=== PATIENT | male | born 1955 | race Caucasian/White ===

== ENCOUNTER 2016-10-29 17:29 | Observation (INO) | payer OTHER ==
[~2016-10-29] VITALS: Ht 180.3 cm; Wt 106.6 kg
--- NOTE | 2016-10-29 17:43 | EKG ---
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
[2016-10-29 17:52] LABS: BASO % 1 % (0-3); EOS # 0.3 x10^3/uL (0.0-0.7); EOS % 5 % (0-3); HEMATOCRIT 39.6 % (39.0-53.0); HEMOGLOBIN 13.6 g/dL (13.0-17.5); LYMPH # 2.3 x10^3/uL (1.0-4.8); LYMPH % 43 % (24-48); MEAN CORPUSCULAR HEMOGLOBIN 33 pg (25-35); MEAN CORPUSCULAR HGB CONC 34 g/dL (31-37); MEAN CORPUSCULAR VOLUME 97 fL (79-100); MONO # 0.8 x10^3/uL (0.0-1.1); MONO % 14 % (0-9); NEUT % 37 % (31-73); PLATELET COUNT 136 x10^3/uL (140-400); RED CELL DISTRIBUTION WIDTH 13.2 % (11.5-14.5); WHITE BLOOD COUNT 5.4 x10^3/uL (4.0-11.0)
[2016-10-29 18:08] LABS: ALBUMIN 3.9 g/dL (3.4-5.0); ALBUMIN/GLOBULIN RATIO 0.9 (1.0-1.7); CALCIUM 8.5 mg/dL (8.5-10.1); GFR 75.7; POTASSIUM 3.4 mmol/L (3.5-5.1); TOTAL BILIRUBIN 1.3 mg/dL (0.2-1.0); TOTAL PROTEIN 8.2 g/dL (6.4-8.2)
--- NOTE | 2016-10-29 18:10 | PHYS DOC ---
Adult General Chief Complaint Chief Complaint: CHEST PAIN HPI HPI Patient is a 60 year old male who presents with chest pain and palpitations. The patient states just prior to arrival he was shopping at [employer] when he had sudden onset of substernal chest pressure radiating to his throat. Associated with shortness of breath and nausea, denies diaphoresis. Reports sensation of palpitations and racing heartbeat. Denies fevers or chills, cough, lower extremity pain or swelling. He reports previous history of similar symptoms when he was diagnosed with A. fib. He had ablation in the past and has had no further recurrence of atrial fibrillation. Also has CAD status post cardiac stent 1. Former smoker. 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 Review of Systems Review of Systems Constitutional: Denies fever or chills Eyes: Denies change in visual acuity HENT: Denies nasal congestion or sore throat Respiratory: Denies cough or shortness of breath Cardiovascular: For chest pain and palpitations, denies edema GI: Denies abdominal pain, nausea, vomiting, bloody stools or diarrhea Musculoskeletal: Denies back pain or joint pain Integument: Denies rash or skin lesions Neurologic: Denies headache, focal weakness or sensory changes Current Medications Current Medications Current Medications Medications (Trade) Dose Ordered Sig/Dorinda Start Time Stop Time Status Last Admin Dose Admin Aspirin (Children'S Aspirin) 324 mg 1X ONCE 10/29/16 17:45 10/29/16 17:46 UNV Physical Exam Physical Exam Constitutional: Obese, no acute distress, non-toxic appearance. HENT: Normocephalic, atraumatic, bilateral external ears normal, oropharynx moist, nose normal. Eyes: PERRLA, EOMI, conjunctiva normal, no discharge. Neck: supple, no stridor. Cardiovascular: RRR, no murmurs, no edema. Lungs & Thorax: LCTAB, no wheezing, no respiratory distress. No tenderness with palpation of her anterior chest wall. Abdomen: soft, nontender, nondistended. Skin: Warm, dry, no erythema, no rash. Back: No tenderness. Extremities: No tenderness, no edema. Calf tenderness or swelling Neurologic: Alert and oriented X 3, no focal deficits noted. Psychologic: Affect normal, judgement normal, mood normal. Current Patient Data Lab Results Laboratory Tests Test 10/29/16 17:35 White Blood Count 5.4 x10^3/uL (4.0-11.0) Red Blood Count 4.10 x10^6/uL (4.30-5.70) L Hemoglobin 13.6 g/dL (13.0-17.5) Hematocrit 39.6 % (39.0-53.0) Mean Corpuscular Volume 97 fL (79-100) Mean Corpuscular Hemoglobin 33 pg (25-35) Mean Corpuscular Hemoglobin Concent 34 g/dL (31-37) Red Cell Distribution Width 13.2 % (11.5-14.5) Platelet Count 136 x10^3/uL (140-400) L Neutrophils (%) (Auto) 37 % (31-73) Lymphocytes (%) (Auto) 43 % (24-48) Monocytes (%) (Auto) 14 % (0-9) H Eosinophils (%) (Auto) 5 % (0-3) H Basophils (%) (Auto) 1 % (0-3) Neutrophils # (Auto) 2.0 x10^3uL (1.8-7.7) Lymphocytes # (Auto) 2.3 x10^3/uL (1.0-4.8) Monocytes # (Auto) 0.8 x10^3/uL (0.0-1.1) Eosinophils # (Auto) 0.3 x10^3/uL (0.0-0.7) Basophils # (Auto) 0.0 x10^3/uL (0.0-0.2) EKG EKG Interpreted by me: Normal sinus rhythm rate 97, no acute ST or T wave changes, normal intervals, no ectopy. [] Radiology/Procedures Radiology/Procedures Chest x-ray: Interpreted by me: Cardiomegaly, no infiltrate, no pneumothorax, no acute process. [] Course & Med Decision Making Course & Med Decision Making Pertinent Labs and Imaging studies reviewed. (See chart for details) Patient presents with chest pain. Given aspirin upon arrival. He was pain-free at time of my evaluation. Obtained labs, EKG, chest x-ray. Results pending at the end of my shift. Will transfer care to Dr. Beaulieu follow-up results and disposition accordingly. Anticipate admission, either here for cardiac rule out or to [facility] for requiring emergent cardiology intervention. Patient in stable condition end of my shift. Pt signed out to me at 1800 shift change. Pt seen and examined, chart reviewed. d-dimer elevated 0.91, CTA ordered. K+ 3.4, AST 136, ALT 120, t. bili 1.3, lipase 456, etoh +/ <10. Pt denies n/v/abd pain after eating, neg murray. 60/M h/o afib/CAD to ED with CP, nondiagnostic findings to this point. Pt has been resting comfortably, no new/progressive sx. Pt [employer] Dr Marcum at [facility] (prefers to be admitted here if needed), pt PCP Dr Mendy Ivey. Pt needs OBS admission to follow CE and at this point requests admission at this facility. 2023: Pt discussed with Dr Barakat who accepts Obs admission to follow CE and cardio consult in am. IMPRESSIONS: Chest Pain r/o UT hypokalemia Elevated lipase/LFTs h/o afib, CAD Dragon Disclaimer Dragon Disclaimer This chart was dictated in whole or in part using Voice Recognition software in a busy, high-work load, and often noisy Emergency Department environment. It may contain unintended and wholly unrecognized errors or omissions. Departure Departure: Referrals: MENDY IVEY MD (PCP) RAVI BENAVIDES MD Oct 29, 2016 18:10 LEXUS BEAULIEU DO Oct 29, 2016 20:37
[2016-10-29] MEDS ORDERED: ASPIRIN 81 MG TAB.CHEW PO ONE (18:45)
[2016-10-29 19:23] LABS: BARBITURATES NEG (NEG); BENZODIAZEPINES NEG (NEG); CANNABINOIDS NEG (NEG); COCAINE NEG (NEG); METHADONE NEG (NEG); OPIATES NEG (NEG); PHENCYCLIDINE NEG (NEG)
[2016-10-29 19:24] LABS: AMPHETAMINE/METHAMPHETAMINE NEG (NEG)
[2016-10-29] MEDS ORDERED: IOHEXOL 300 MG/ML 75 ML VIAL. IV ONE (19:30)
[2016-10-29] MEDS ORDERED: CONTRAST GIVEN MC PRN (19:30)
--- NOTE | 2016-10-29 19:58 | RAD ---
Indication: Chest pain and shortness of air with elevated d-dimer. Axial imaging through the chest was performed after the administration of intravenous contrast and utilizing the CT angiography protocol. Multiplanar, 3-D and mip reformations were also performed. One or more of the following individualized dose reduction techniques were utilized for this examination: 1. Automated exposure control 2. Adjustment of the mA and/or kV according to patient size 3. Use of iterative reconstruction technique Evaluation of the pulmonary arterial system is without evidence of thromboembolism. No filling defects are detected. The thoracic aorta is normal caliber. No dissection is seen. No pericardial or pleural fluid is detected. Central airways are patent. The lungs are clear. The upper abdomen demonstrate probable fatty infiltration of the liver. IMPRESSION: 1. No evidence of pulmonary embolism or thoracic aortic dissection. 2. Fatty infiltration of the liver. Electronically signed by: Rm Benson MD (10/29/2016 7:54 PM)
[2016-10-29] MEDS ORDERED: ACETAMINOPHEN 325 MG TABLET PO PRN (20:30)
[2016-10-29] MEDS ORDERED: ONDANSETRON PF 4 MG/2 ML VIAL. IV PRN (20:30)
[2016-10-29] MEDS ORDERED: NITROGLYCERIN SUBLINGUAL 0.4 MG BOTTLE OF 25. SL PRN (20:30)
[2016-10-29] MEDS ORDERED: ALBUTEROL SULFATE 8GM INHALER. INH PRN (21:30)
[2016-10-29] MEDS ORDERED: BUDE10.2 IH (21:31)
[2016-10-29] MEDS ORDERED: ASPI325T8 PO (21:31)
[2016-10-29] MEDS ORDERED: OMEG1CAP50 PO (21:31)
[2016-10-29] MEDS ORDERED: DILT360C PO (21:31)
[2016-10-29] MEDS ORDERED: RABE20TA26 PO (21:31)
[2016-10-29] MEDS ORDERED: ALBU8.5H8 INH (21:31)
[2016-10-29 21:40] VITALS: BP 179/64
[2016-10-29] MEDS ORDERED: ALBUTEROL SULFATE 2.5 MG/3 ML NEBU. NEB PRN (21:45)
[2016-10-30 05:24] VITALS: BP 143/74
--- NOTE | 2016-10-30 07:05 | ACF ---
Admission Criteria Forms TELEMETRY CARE Telemetry Admission Guidelines (Place 'X' for any and all applicable criteria): Admission to telemetry [A] may be indicated for ANY ONE of the following(1)(2)(3 )(4)(5): [X]I. Cardiac disease, including ANY ONE of the following (9)(10)(11)(12)(13 ): [ ]a) Postacute UT [ ]b) Low-risk patients with ST-segment elevation UT who have undergone successful percutaneous coronary intervention [ ]c) Unstable angina [X]d) Suspected UT (until it is ruled out) [ ]e) Post cardiac surgery (first 48 to 72 hours unless complications occur) [ ]f) Acute arrhythmias (including significant tachycardia or bradycardia) [B] [ ]g) Firing of an implantable cardioverter defibrillator [C] [ ]h) Suspected pacemaker or implantable cardioverter defibrillator malfunction (10) [ ]i) New administration or adjustment of an antiarrhythmic drug [D ] [ ]j) Child admitted for acute congestive heart failure [ ]j) Long QT syndrome [ ]k) Advanced heart block (eg, second-degree Mobitz type II, third- degree heart block) [ ]l) Acute myocarditis or pericarditis [ ]m) Short-term (ambulatory or inpatient) monitoring after a cardiac procedure as indicated by ANY ONE of the following [E]: [ ]i) Electrophysiologic studies [ ]ii) Percutaneous coronary intervention with stent placement [ ]iii) Pacemaker placement with cardiac conduction defect [ ]iv) Implantable cardiac defibrillator placement [ ]II. Drug overdose or poisoning with substance that causes arrhythmias or QT prolongation (eg, phenothiazines, sympathomimetic agents, cyclic antidepressants, digitalis, antiarrhythmic drugs)(15) [ ]III. Short-term (ambulatory or inpatient) monitoring after therapeutic or diagnostic procedure requiring conscious sedation or anesthesia (eg, endoscopy, elective cardioversion) [ ]IV. Acute cerebrovascular even[F](18) [ ]V. Massive blood transfusion (eg, at least 10 units of packed red blood cells in 24 hours) [ ]. Variceal bleeding after endoscopy, sclerotherapy, or IV vasopressin [ ]VII. Uncorrected electrolyte abnormalities associated with an increased risk of dangerous arrhythmia [G]; examples include [ ]a) Hyperkalemia with attributable ECG changes [ ]b) Potassium greater than 6.5 mmol/L (mEq/L) in a patient without history of chronic renal disease [ ]c) Prolonged QT attributed to hypokalemia, hypomagnesemia, or hypocalcemia [ ]VIII.Unexplained syncope or other neurologic event suspected of being due to arrhythmia due to a finding that increases risk; examples include(19)(20)(21): [ ]a) High-risk ECG findings (eg, bifascicular block, bradycardia, abnormal QT interval, ventricular pre- excitation) [ ]b) History of previous syncope due to arrhythmia [ ]c) Abnormal ventricular function (eg, reduced ejection fraction ) [ ]d) Exertional or supine syncope [ ]e) Concerning syncope characteristics (eg, sudden loss of consciousness without prodrome) [ ]f) Family history of sudden [ ]g) Use of arrhythmogenic medication [ ]h) Suspected cardiac ischemia [ ]i) Known channelopathy (eg, long QT syndrome, Brugada syndrome, or catecholaminergic paroxysmal ventricular tachycardia) [ ]j) Known structural heart disease (eg, hypertrophic cardiomyopathy , severe valvular disease) [ ]k) Palpitations preceding syncope The original [email or web address] content created by [email or web address] has been revised. The portions of the content which have been revised are identified through the use of italic text or in bold, and [email or web address] has neither reviewed nor approved the modified material. All other unmodified content is copyright [email or web address]. Please see references footnoted in the original [email or web address] edition 2016 Admission Criteria Met?: Yes ELANA HOLLAND Oct 30, 2016 07:05
[2016-10-30] MEDS ORDERED: BUDESONIDE 0.5 MG/2 ML NEBU NEB SCH (08:00)
[2016-10-30 08:08] LABS: BASO % 1 % (0-3); EOS # 0.2 x10^3/uL (0.0-0.7); EOS % 3 % (0-3); HEMATOCRIT 36.7 % (39.0-53.0); HEMOGLOBIN 12.6 g/dL (13.0-17.5); LYMPH # 1.2 x10^3/uL (1.0-4.8); LYMPH % 24 % (24-48); MEAN CORPUSCULAR HEMOGLOBIN 33 pg (25-35); MEAN CORPUSCULAR HGB CONC 34 g/dL (31-37); MEAN CORPUSCULAR VOLUME 97 fL (79-100); MONO # 0.7 x10^3/uL (0.0-1.1); MONO % 14 % (0-9); NEUT # 2.9 x10^3uL (1.8-7.7); NEUT % 58 % (31-73); PLATELET COUNT 105 x10^3/uL (140-400); RED BLOOD COUNT 3.79 x10^6/uL (4.30-5.70); RED CELL DISTRIBUTION WIDTH 13.2 % (11.5-14.5); WHITE BLOOD COUNT 4.9 x10^3/uL (4.0-11.0)
[2016-10-30 08:24] LABS: ALBUMIN 3.5 g/dL (3.4-5.0); CALCIUM 8.4 mg/dL (8.5-10.1); CREATININE 0.9 mg/dL (0.7-1.3); GFR 85.5; POTASSIUM 3.3 mmol/L (3.5-5.1); TOTAL BILIRUBIN 1.6 mg/dL (0.2-1.0)
[2016-10-30] MEDS ORDERED: NON FORMULARY ITEM (Budesonide/Formoterol Fumarate (Symbicort 160-4.5 Mcg Inhaler) 2 PUFF) IH SCH (09:00)
[2016-10-30] MEDS ORDERED: ASPIRIN 325 MG TABLET PO SCH (09:00)
[2016-10-30] MEDS ORDERED: OMEGA-3 FATTY ACIDS/FISH OIL 1,000 MG CAPSULE. PO SCH (09:00)
--- NOTE | 2016-10-30 09:24 | RAD ---
Indication chest pain. A single view of the chest was obtained. No prior imaging of the chest is available. The heart and pulmonary vessels appear normal. The lungs are clear. No acute finding is apparent. IMPRESSION: No acute finding apparent in the chest
[2016-10-30] MEDS: ALBUTEROL SULFATE 2.5 MG/3 ML NEBU. NEB SCH ×2 (10:00→12:00)
[2016-10-30 10:21] VITALS: BP 138/82
--- NOTE | 2016-10-30 14:00 | PDOC1 ---
History of Present Illness Reason for Visit: chest pain and palpitation History of Present Illness The patient was shopping at [employer] when he started to complain of retrosternal chest pain radiating to his neck associated with nausea but no vomiting He also c/o SOB but denied diaphoresis The whole episode lasted about 30 minutes It was similar to an other episode before after which he underwent angioplasty and stent deployment Chief Complaint: CHEST PAIN Allergies: Coded Allergies: cephalexin (Verified Allergy, Intermediate, 10/30/16) Past Medical History Cardiac: AFIB, CAD Pulmonary: Other (bronchial asthma) 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 He used to smoke 1 ppd for almost 37 years ) Alcohol: heavy (drinks vodka or whisky daily) Drugs: None Lives: with Family Domestic Violence: Neg Health Maintenance: Colonoscopy Review of Systems Review Of Systems Fourteen system , review of systems has been reviewed. See HPI for pertinent positives and negative responses, other estes all other systems are negative, non pertinent or non contributory Constitutional: Sweats Cardiovascular: yes: Chest Pain, Palpitations Gastrointestinal: YES: Nausea Allergies: Coded Allergies: cephalexin (Verified Allergy, Intermediate, 10/30/16) Medications Current Medications Aspirin (Children'S Aspirin) 324 mg 1X ONCE PO ; Start 10/29/16 at 18:45; Stop 10/29/16 at 18:46; Status DC Iohexol (Omnipaque 300 Mg/ml) 75 ml 1X ONCE IV Last administered on 10/29/16t 19:36; Start 10/29/16 at 19:30; Stop 10/29/16 at 19:31; Status DC Info (Do NOT chart on this entry -- for MONITORING) 1 each PRN DAILY PRN MC SEE COMMENTS; Start 10/29/16 at 19:30; Stop 10/31/16 at 19:29 Ondansetron HCl (Zofran) 4 mg PRN Q4HRS PRN IV NAUSEA/VOMITING; Start 10/29/16 at 20:30; Stop 10/30/16 at 20:29 Acetaminophen (Tylenol) 650 mg PRN Q4HRS PRN PO FEVER; Start 10/29/16 at 20:30; Stop 10/30/16 at 20:29 Nitroglycerin (Nitrostat) 0.4 mg PRN Q5MIN PRN SL CHEST PAIN; Start 10/29/16 at 20:30; Stop 10/30/16 at 20:29 Albuterol Sulfate (Ventolin Hfa) 8.5 puff PRN Q6HRS PRN INH SHORTNESS OF BREATH ; Start 10/29/16 at 21:30; Status UNV Aspirin (Tonia Aspirin) 325 mg DAILY PO Last administered on 10/30/16 08:29; Start 10/30/16 at 09:00 Fish Oil (Fish Oil) 1,000 mg DAILY PO Last administered on 10/30/16 08:29; Start 10/30/16 at 09:00 Non-Formulary Medication 2 puff BID IH ; Start 10/30/16 at 09:00; Status UNV Diltiazem HCl (Cardizem 24hr Cd) 360 mg DAILY PO Last administered on 10/30/16 08:29; Start 10/30/16 at 09:00 Albuterol Sulfate (Ventolin) 2.5 mg PRN Q6HRS PRN NEB SHORTNESS OF BREATH; Start 10/29/16 at 21:45 Albuterol Sulfate (Ventolin) 2.5 mg RTQID NEB Last administered on 10/30/16 10: 00; Start 10/30/16 at 08:00 Budesonide (Pulmicort) 0.5 mg RTBID NEB Last administered on 10/30/16 10:00; Start 10/30/16 at 08:00 Active Scripts Active Reported Symbicort 160-4.5 Mcg Inhaler (Budesonide/Formoterol Fumarate) 10.2 Gm Hfa.aer.ad 2 Puff IH BID Proair Hfa Inhaler (Albuterol Sulfate) 8.5 Gm Hfa.aer.ad Unknown Dose INH PRN Q6HRS PRN Rabeprazole Sodium 20 Mg Tablet. 20 Mg PO Aspirin 325 Mg Tablet 1 Tab PO DAILY Fish Oil 1,000 Mg Softgel ([place]-3 Fatty Acids/Fish Oil) 1 Each Capsule 1 Each PO Cardizem Cd (Diltiazem Hcl) 360 Mg Cap.er.24h 1 Cap PO DAILY Exam Vital Signs Vital Signs Date Time Temp Pulse Resp B/P (MAP) Pulse Ox O2 Delivery O2 Flow Rate FiO2 10/30/16 10:21 98.2 84 20 138/82 (100) 93 Room Air 10/29/16 18:30 2.0 General Appearance: Alert, Oriented X3, Cooperative, No acute distress HEENT: Atraumatic, PERRLA, EOMI, Mucous membr. moist/pink Heart: Regular rate, Normal S1, Normal S2, No murmurs Cardiac: AFIB, CAD, CHF, MD Abdominal: Normal bowel sounds, Soft, No tenderness, No hepatospenomegaly Extremities: No clubbing, No cyanosis, No edema, Normal pulses Skin: No rashes, No breakdown Neuro: Normal gait, Normal speech, Strength at 5/5 X4 ext, Normal tone, Sensation intact Psych/Mental Status: Mental status NL, Mood NL Assessment/Plan Assessment/Plan Chest pain to R/O MD for which we will check three sets of cardiac enzymes CAD s/p PTCA and stent deployment Atrial Fibrillation s/p ablation x2 Bronchial asthma Esophagitis with esophageal stricture ?Alcohol hepatitis Alcohol induced Pancreatitis COURSE Allergies Coded Allergies Type Severity Reaction Last Updated Verified cephalexin Allergy Intermediate 10/30/16 Yes Laboratory Tests Test 10/29/16 17:35 10/29/16 18:25 10/29/16 18:50 10/30/16 01:20 White Blood Count 5.4 x10^3/uL (4.0-11.0) Red Blood Count 4.10 x10^6/uL (4.30-5.70) Hemoglobin 13.6 g/dL (13.0-17.5) Hematocrit 39.6 % (39.0-53.0) Mean Corpuscular Volume 97 fL (79-100) Mean Corpuscular Hemoglobin 33 pg (25-35) Mean Corpuscular Hemoglobin Concent 34 g/dL (31-37) Red Cell Distribution Width 13.2 % (11.5-14.5) Platelet Count 136 x10^3/uL (140-400) Neutrophils (%) (Auto) 37 % (31-73) Lymphocytes (%) (Auto) 43 % (24-48) Monocytes (%) (Auto) 14 % (0-9) Eosinophils (%) (Auto) 5 % (0-3) Basophils (%) (Auto) 1 % (0-3) Neutrophils # (Auto) 2.0 x10^3uL (1.8-7.7) Lymphocytes # (Auto) 2.3 x10^3/uL (1.0-4.8) Monocytes # (Auto) 0.8 x10^3/uL (0.0-1.1) Eosinophils # (Auto) 0.3 x10^3/uL (0.0-0.7) Basophils # (Auto) 0.0 x10^3/uL (0.0-0.2) Prothrombin Time 10.8 SEC (9.4-11.4) Prothromb Time International Ratio 1.1 (0.9-1.1) Sodium Level 139 mmol/L (136-145) Potassium Level 3.4 mmol/L (3.5-5.1) Chloride Level 99 mmol/L (98-107) Carbon Dioxide Level 26 mmol/L (21-32) Anion Gap 14 (6-14) Blood Urea Nitrogen 8 mg/dL (8-26) Creatinine 1.0 mg/dL (0.7-1.3) Estimated GFR (Cockcroft-Gault) 75.7 BUN/Creatinine Ratio 8 (6-20) Glucose Level 95 mg/dL (70-99) Calcium Level 8.5 mg/dL (8.5-10.1) Total Bilirubin 1.3 mg/dL (0.2-1.0) Aspartate Amino Transf (AST/SGOT) 136 U/L (15-37) Alanine Aminotransferase (ALT/SGPT) 120 U/L (16-63) Alkaline Phosphatase 94 U/L (46-116) Troponin I Quantitative < 0.017 ng/mL (0-0.055) < 0.017 ng/mL (0-0.055) VB-Gpy-Y-Type Natriuretic Peptide 84 pg/mL (0-124) Total Protein 8.2 g/dL (6.4-8.2) Albumin 3.9 g/dL (3.4-5.0) Albumin/Globulin Ratio 0.9 (1.0-1.7) Lipase 456 U/L (73-393) Ethyl Alcohol Level < 10 mg/dL (0-10) D-Dimer (Aubree) 0.91 mg/L (0.00-0.50) Urine Opiates Screen Neg (NEG) Urine Methadone Screen Neg (NEG) Urine Barbiturates Neg (NEG) Urine Phencyclidine Screen Neg (NEG) Urine Amphetamine/Methamphetamine Neg (NEG) Urine Benzodiazepines Screen Neg (NEG) Urine Cocaine Screen Neg (NEG) Urine Cannabinoids Screen Neg (NEG) Urine Ethyl Alcohol Pos (NEG) Test 10/30/16 07:50 White Blood Count 4.9 x10^3/uL (4.0-11.0) Red Blood Count 3.79 x10^6/uL (4.30-5.70) Hemoglobin 12.6 g/dL (13.0-17.5) Hematocrit 36.7 % (39.0-53.0) Mean Corpuscular Volume 97 fL (79-100) Mean Corpuscular Hemoglobin 33 pg (25-35) Mean Corpuscular Hemoglobin Concent 34 g/dL (31-37) Red Cell Distribution Width 13.2 % (11.5-14.5) Platelet Count 105 x10^3/uL (140-400) Neutrophils (%) (Auto) 58 % (31-73) Lymphocytes (%) (Auto) 24 % (24-48) Monocytes (%) (Auto) 14 % (0-9) Eosinophils (%) (Auto) 3 % (0-3) Basophils (%) (Auto) 1 % (0-3) Neutrophils # (Auto) 2.9 x10^3uL (1.8-7.7) Lymphocytes # (Auto) 1.2 x10^3/uL (1.0-4.8) Monocytes # (Auto) 0.7 x10^3/uL (0.0-1.1) Eosinophils # (Auto) 0.2 x10^3/uL (0.0-0.7) Basophils # (Auto) 0.0 x10^3/uL (0.0-0.2) Sodium Level 136 mmol/L (136-145) Potassium Level 3.3 mmol/L (3.5-5.1) Chloride Level 96 mmol/L (98-107) Carbon Dioxide Level 31 mmol/L (21-32) Anion Gap 9 (6-14) Blood Urea Nitrogen 11 mg/dL (8-26) Creatinine 0.9 mg/dL (0.7-1.3) Estimated GFR (Cockcroft-Gault) 85.5 BUN/Creatinine Ratio 12 (6-20) Glucose Level 99 mg/dL (70-99) Calcium Level 8.4 mg/dL (8.5-10.1) Total Bilirubin 1.6 mg/dL (0.2-1.0) Aspartate Amino Transf (AST/SGOT) 88 U/L (15-37) Alanine Aminotransferase (ALT/SGPT) 95 U/L (16-63) Alkaline Phosphatase 81 U/L (46-116) Troponin I Quantitative < 0.017 ng/mL (0-0.055) Total Protein 7.0 g/dL (6.4-8.2) Albumin 3.5 g/dL (3.4-5.0) Albumin/Globulin Ratio 1.0 (1.0-1.7) Current Medications Medications (Trade) Dose Ordered Sig/Dorinda Route PRN Reason Start Time Stop Time Status Last Admin Dose Admin Aspirin (Children'S Aspirin) 324 mg 1X ONCE PO 10/29/16 18:45 10/29/16 18:46 DC Iohexol (Omnipaque 300 Mg/ml) 75 ml 1X ONCE IV 10/29/16 19:30 10/29/16 19:31 DC 10/29/16 19:36 Info (Do NOT chart on this entry -- for MONITORING) 1 each PRN DAILY PRN MC SEE COMMENTS 10/29/16 19:30 10/31/16 19:29 Ondansetron HCl (Zofran) 4 mg PRN Q4HRS PRN IV NAUSEA/VOMITING 10/29/16 20:30 10/30/16 20:29 Acetaminophen (Tylenol) 650 mg PRN Q4HRS PRN PO FEVER 10/29/16 20:30 10/30/16 20:29 Nitroglycerin (Nitrostat) 0.4 mg PRN Q5MIN PRN SL CHEST PAIN 10/29/16 20:30 10/30/16 20:29 Albuterol Sulfate (Ventolin Hfa) 8.5 puff PRN Q6HRS PRN INH SHORTNESS OF BREATH 10/29/16 21:30 UNV Aspirin (Tonia Aspirin) 325 mg DAILY PO 10/30/16 09:00 10/30/16 08:29 Fish Oil (Fish Oil) 1,000 mg DAILY PO 10/30/16 09:00 10/30/16 08:29 Non-Formulary Medication 2 puff BID IH 10/30/16 09:00 UNV Diltiazem HCl (Cardizem 24hr Cd) 360 mg DAILY PO 10/30/16 09:00 10/30/16 08:29 Albuterol Sulfate (Ventolin) 2.5 mg PRN Q6HRS PRN NEB SHORTNESS OF BREATH 10/29/16 21:45 Albuterol Sulfate (Ventolin) 2.5 mg RTQID NEB 10/30/16 08:00 10/30/16 10:00 Budesonide (Pulmicort) 0.5 mg RTBID NEB 10/30/16 08:00 10/30/16 10:00 Orders Procedure Category Date Status Time Aspirin (Children's PHA 10/29/16 Complete Aspirin) 18:45 12 Lead Ekg EKG 10/29/16 Complete 17:37 Chest Ap Only RAD 10/29/16 Resulted 17:37 Cbc W Autodiff LAB 10/29/16 Complete 17:37 Comprehensive LAB 10/29/16 Complete Metabolic Panel 17:37 Nt-Pro Bnp LAB 10/29/16 Complete 17:37 Protime LAB 10/29/16 Complete 17:37 Troponin I LAB 10/29/16 Complete 17:37 Insert And Maintain Iv EMI 10/29/16 In Process 17:37 Stem Frazer ER 10/29/16 Transmitted 17:37 Continuous Pulse ER 10/29/16 Transmitted Oximetry 17:37 D-Dimer LAB 10/29/16 Complete 18:07 Lipase LAB 10/29/16 Complete 18:32 Ethanol LAB 10/29/16 Complete 18:32 Drugs Of Abuse Ur LAB 10/29/16 Complete 18:[address] 10/29/16 Resulted 19:12 Iohexol 300 Mg/Ml PHA 10/29/16 Complete (Omnipaque 300 Mg/Ml) 19:30 Contrast Given (Do PHA 10/29/16 In Process Not Chart On This Ent 19:30 Ed Bridge Order ADT 10/29/16 Transmitted 20:25 Code Status CODE 10/29/16 Transmitted 20:25 Vital Signs, Per EMI 10/29/16 In Process Protocol 20:25 Oxygen EMI 10/29/16 In Process 20:25 Cardiac DIET 10/30/16 Transmitted Breakfast Bed Rest EMI 10/29/16 In Process 20:25 Cbc W Autodiff LAB 10/30/16 Complete 06:00 Comprehensive LAB 10/30/16 Complete Metabolic Panel 06:00 Ondansetron Pf PHA 10/29/16 In Process (Zofran) 20:30 Troponin I LAB 10/30/16 Complete 01:25 Acetaminophen PHA 10/29/16 In Process (Tylenol) 20:30 Nitroglycerin PHA 10/29/16 In Process Sublingual (Nitrostat) 20:30 Troponin I LAB 10/30/16 Complete 07:25 Admit Orders ADT 10/29/16 Transmitted Aspirin (Tonia PHA 10/30/16 In Process Aspirin) 09:00 [place]-3 Fatty PHA 10/30/16 In Process Acids/Fish Oil (Fish 09:00 Diltiazem Hcl PHA 10/30/16 In Process (Cardizem 24hr Cd) 09:00 Albuterol Sulfate PHA 10/29/16 In Process (Ventolin) 21:45 Albuterol Sulfate PHA 10/30/16 In Process (Ventolin) 08:00 Airway Inhalation RT 10/29/16 Complete Treatment 21:40 Airway Inhalation RT 10/29/16 Complete Treatment 21:40 Budesonide (Pulmicort) PHA 10/30/16 In Process 08:00 Lipase LAB 10/30/16 In Process 13:32 Potassium Chloride PHA 10/30/16 Logged (Klor-Con) 13:45 Vital Signs Date Time Temp Pulse Resp B/P (MAP) Pulse Ox O2 Delivery O2 Flow Rate FiO2 10/30/16 10:21 98.2 84 20 138/82 (100) 93 Room Air 10/29/16 18:30 2.0 RASHAD MOSER MD Oct 30, 2016 14:00
[2016-10-30] MEDS ORDERED: POTASSIUM CHLORIDE 20 MEQ TABLET.ER. PO ONE (14:10)
[2016-10-30 14:30] VITALS: BP 128/63
--- NOTE | 2016-10-30 15:04 | PDOC ---
PROVIDER NOTE PROVIDER NOTE PROVIDER NOTE CARDIOLOGY CONSULTATION NOTE: CC: Chest pressure HPI: 60 y.o male with prior history of afib s/p ablation x 2 at [facility] presenting with chest pressure after an intense coughing spell. Pt. felt similar to when he has had prior afib with rvr episodes. Patient has been having frequent coughing spells for the last 3 months. Recently stopped statin due to myalgias. Denies any exertional angina or dyspnea. Pain is not similar to when he had an angioplasty. corroborates this information. Reports compliance with meds. No other acute issues. PMhx: 1. CAD s/p PCI 2. Afib s/p ablation. 3. HTN Sochx: Retired from [employer]. . No smoking. Drinks alcohol regularly. Famhx: Non contributory. ALL: cephalexin MEds reviewed - see MRAD ROS: Negative for 02/09 systems reviewed unless otherwise noted above in HPI. Physical Exam; VSS: GEN: A/O x 3. CVS: RRR no m/r/g PULM: CTAB ABD: Soft, NT/ND +BS EXT: No edema. 2+ pedal pulses. NEURO: Non-focal. Labs: Trop neg x 2. CT chest negative. EKG: SR. No acute findings. Impression: 1. Non-cardiac chest pain. 2. Prior CAD and afib. 3. Dyslipidemia- intolerant to statins. Plans: 1. Given normal EKG, negative enzymes, chest pain prompted by intense coughing, he is at low risk for ACS. Ok to DC. Will start low dose Imdur 30mg daily 2. Plan for outpt stress testing given his history with echo and MPI in 48 hours. 3. F/u at [facility]. Thanks for consult. JOHANNE BOWMAN MD Oct 30, 2016 15:04
[2016-10-30] MEDS ORDERED: ISOS30TA4 PO (15:10)
--- NOTE | 2016-10-30 15:16 | PDOC3 ---
Discharge Summary Visit Information Date of Admission: Oct 29, 2016 Date of Discharge: Oct 30, 2016 Admitting Diagnosis: CHEST PAIN AND PALPITATION Admitting Diagnosis Comments The patient was admitted to [facility] [place] and consult cardiology team Final Diagnosis Problems Medical Problems: (1) Chest pain, rule out acute myocardial infarction Status: Acute atrial fibrillation s/p ablation x 2 CAD s/p PTCA and stent deployment Esophagitis with esophageal stricture s/p dialtation Alcoholism Mild alcohol induced pancreatitis Problems: Brief Hospital Course Allergies Allergies Coded Allergies Type Severity Reaction Last Updated Verified cephalexin Allergy Intermediate 10/30/16 Yes Vital Signs Vital Signs Date Time Temp Pulse Resp B/P (MAP) Pulse Ox O2 Delivery O2 Flow Rate FiO2 10/30/16 14:30 98.2 80 20 128/63 (84) 96 Room Air 10/29/16 18:30 2.0 Lab Results Laboratory Tests Test 10/29/16 17:35 10/29/16 18:25 10/29/16 18:50 10/30/16 01:20 White Blood Count 5.4 x10^3/uL (4.0-11.0) Red Blood Count 4.10 x10^6/uL (4.30-5.70) Hemoglobin 13.6 g/dL (13.0-17.5) Hematocrit 39.6 % (39.0-53.0) Mean Corpuscular Volume 97 fL (79-100) Mean Corpuscular Hemoglobin 33 pg (25-35) Mean Corpuscular Hemoglobin Concent 34 g/dL (31-37) Red Cell Distribution Width 13.2 % (11.5-14.5) Platelet Count 136 x10^3/uL (140-400) Neutrophils (%) (Auto) 37 % (31-73) Lymphocytes (%) (Auto) 43 % (24-48) Monocytes (%) (Auto) 14 % (0-9) Eosinophils (%) (Auto) 5 % (0-3) Basophils (%) (Auto) 1 % (0-3) Neutrophils # (Auto) 2.0 x10^3uL (1.8-7.7) Lymphocytes # (Auto) 2.3 x10^3/uL (1.0-4.8) Monocytes # (Auto) 0.8 x10^3/uL (0.0-1.1) Eosinophils # (Auto) 0.3 x10^3/uL (0.0-0.7) Basophils # (Auto) 0.0 x10^3/uL (0.0-0.2) Prothrombin Time 10.8 SEC (9.4-11.4) Prothromb Time International Ratio 1.1 (0.9-1.1) Sodium Level 139 mmol/L (136-145) Potassium Level 3.4 mmol/L (3.5-5.1) Chloride Level 99 mmol/L (98-107) Carbon Dioxide Level 26 mmol/L (21-32) Anion Gap 14 (6-14) Blood Urea Nitrogen 8 mg/dL (8-26) Creatinine 1.0 mg/dL (0.7-1.3) Estimated GFR (Cockcroft-Gault) 75.7 BUN/Creatinine Ratio 8 (6-20) Glucose Level 95 mg/dL (70-99) Calcium Level 8.5 mg/dL (8.5-10.1) Total Bilirubin 1.3 mg/dL (0.2-1.0) Aspartate Amino Transf (AST/SGOT) 136 U/L (15-37) Alanine Aminotransferase (ALT/SGPT) 120 U/L (16-63) Alkaline Phosphatase 94 U/L (46-116) Troponin I Quantitative < 0.017 ng/mL (0-0.055) < 0.017 ng/mL (0-0.055) IB-Hfl-G-Type Natriuretic Peptide 84 pg/mL (0-124) Total Protein 8.2 g/dL (6.4-8.2) Albumin 3.9 g/dL (3.4-5.0) Albumin/Globulin Ratio 0.9 (1.0-1.7) Lipase 456 U/L (73-393) Ethyl Alcohol Level < 10 mg/dL (0-10) D-Dimer (Aubree) 0.91 mg/L (0.00-0.50) Urine Opiates Screen Neg (NEG) Urine Methadone Screen Neg (NEG) Urine Barbiturates Neg (NEG) Urine Phencyclidine Screen Neg (NEG) Urine Amphetamine/Methamphetamine Neg (NEG) Urine Benzodiazepines Screen Neg (NEG) Urine Cocaine Screen Neg (NEG) Urine Cannabinoids Screen Neg (NEG) Urine Ethyl Alcohol Pos (NEG) Test 10/30/16 07:50 White Blood Count 4.9 x10^3/uL (4.0-11.0) Red Blood Count 3.79 x10^6/uL (4.30-5.70) Hemoglobin 12.6 g/dL (13.0-17.5) Hematocrit 36.7 % (39.0-53.0) Mean Corpuscular Volume 97 fL (79-100) Mean Corpuscular Hemoglobin 33 pg (25-35) Mean Corpuscular Hemoglobin Concent 34 g/dL (31-37) Red Cell Distribution Width 13.2 % (11.5-14.5) Platelet Count 105 x10^3/uL (140-400) Neutrophils (%) (Auto) 58 % (31-73) Lymphocytes (%) (Auto) 24 % (24-48) Monocytes (%) (Auto) 14 % (0-9) Eosinophils (%) (Auto) 3 % (0-3) Basophils (%) (Auto) 1 % (0-3) Neutrophils # (Auto) 2.9 x10^3uL (1.8-7.7) Lymphocytes # (Auto) 1.2 x10^3/uL (1.0-4.8) Monocytes # (Auto) 0.7 x10^3/uL (0.0-1.1) Eosinophils # (Auto) 0.2 x10^3/uL (0.0-0.7) Basophils # (Auto) 0.0 x10^3/uL (0.0-0.2) Sodium Level 136 mmol/L (136-145) Potassium Level 3.3 mmol/L (3.5-5.1) Chloride Level 96 mmol/L (98-107) Carbon Dioxide Level 31 mmol/L (21-32) Anion Gap 9 (6-14) Blood Urea Nitrogen 11 mg/dL (8-26) Creatinine 0.9 mg/dL (0.7-1.3) Estimated GFR (Cockcroft-Gault) 85.5 BUN/Creatinine Ratio 12 (6-20) Glucose Level 99 mg/dL (70-99) Calcium Level 8.4 mg/dL (8.5-10.1) Total Bilirubin 1.6 mg/dL (0.2-1.0) Aspartate Amino Transf (AST/SGOT) 88 U/L (15-37) Alanine Aminotransferase (ALT/SGPT) 95 U/L (16-63) Alkaline Phosphatase 81 U/L (46-116) Troponin I Quantitative < 0.017 ng/mL (0-0.055) Total Protein 7.0 g/dL (6.4-8.2) Albumin 3.5 g/dL (3.4-5.0) Albumin/Globulin Ratio 1.0 (1.0-1.7) Lipase 268 U/L (73-393) Brief Hospital Course Mr. Sanford is a 60 old [sex] who presented with [ ] Discharge Information Condition at Discharge: Improved Follow Up: As Needed Disposition/Orders: D/C to Home, Instructions/Orders Dischare Medications Add Indur 30 mg po daily Current Medications Aspirin (Children'S Aspirin) 324 mg 1X ONCE PO ; Start 10/29/16 at 18:45; Stop 10/29/16 at 18:46; Status DC Iohexol (Omnipaque 300 Mg/ml) 75 ml 1X ONCE IV Last administered on 10/29/16 19:36; Start 10/29/16 at 19:30; Stop 10/29/16 at 19:31; Status DC Info (Do NOT chart on this entry -- for MONITORING) 1 each PRN DAILY PRN MC SEE COMMENTS; Start 10/29/16 at 19:30; Stop 10/31/16 at 19:29 Ondansetron HCl (Zofran) 4 mg PRN Q4HRS PRN IV NAUSEA/VOMITING; Start 10/29/16 at 20:30; Stop 10/30/16 at 20:29 Acetaminophen (Tylenol) 650 mg PRN Q4HRS PRN PO FEVER; Start 10/29/16 at 20:30; Stop 10/30/16 at 20:29 Nitroglycerin (Nitrostat) 0.4 mg PRN Q5MIN PRN SL CHEST PAIN; Start 10/29/16 at 20:30; Stop 10/30/16 at 20:29 Albuterol Sulfate (Ventolin Hfa) 8.5 puff PRN Q6HRS PRN INH SHORTNESS OF BREATH ; Start 10/29/16 at 21:30; Status UNV Aspirin (Tonia Aspirin) 325 mg DAILY PO Last administered on 10/30/16 08:29; Start 10/30/16 at 09:00 Fish Oil (Fish Oil) 1,000 mg DAILY PO Last administered on 10/30/16 08:29; Start 10/30/16 at 09:00 Non-Formulary Medication 2 puff BID IH ; Start 10/30/16 at 09:00; Status UNV Diltiazem HCl (Cardizem 24hr Cd) 360 mg DAILY PO Last administered on 10/30/16 08:29; Start 10/30/16 at 09:00 Albuterol Sulfate (Ventolin) 2.5 mg PRN Q6HRS PRN NEB SHORTNESS OF BREATH; Start 10/29/16 at 21:45 Albuterol Sulfate (Ventolin) 2.5 mg RTQID NEB Last administered on 10/30/16 10: 00; Start 10/30/16 at 08:00 Budesonide (Pulmicort) 0.5 mg RTBID NEB Last administered on 10/30/16 10:00; Start 10/30/16 at 08:00 Potassium Chloride (Klor-Con) 40 meq 1X ONCE PO Last administered on 10/30/16 14:07; Start 10/30/16 at 14:10; Stop 10/30/16 at 14:11; Status DC Active Scripts Active Reported Symbicort 160-4.5 Mcg Inhaler (Budesonide/Formoterol Fumarate) 10.2 Gm Hfa.aer.ad 2 Puff IH BID Proair Hfa Inhaler (Albuterol Sulfate) 8.5 Gm Hfa.aer.ad Unknown Dose INH PRN Q6HRS PRN Rabeprazole Sodium 20 Mg Tablet.dr 20 Mg PO Aspirin 325 Mg Tablet 1 Tab PO DAILY Fish Oil 1,000 Mg Softgel ([place]-3 Fatty Acids/Fish Oil) 1 Each Capsule 1 Each PO Cardizem Cd (Diltiazem Hcl) 360 Mg Cap.er.24h 1 Cap PO DAILY Patient Instructions Patient Instuctions The patient was discharged home with the plan for outpatient stress test on 11/01/2016 RASHAD MOSER MD Oct 30, 2016 15:16
== END 2016-10-30 15:44 | disposition home or self-care (01) ==
LOC: ER 17:29 → 1 SOUTH 20:25
PROVIDERS: ADMIT Internal Medicine; ATTEND Internal Medicine
DX: R07.89 Other chest pain (principal); I25.10 Atherosclerotic heart disease of native coronary artery without angina pectoris; Z95.5 Presence of coronary angioplasty implant and graft; I48.91 Unspecified atrial fibrillation; J45.909 Unspecified asthma, uncomplicated; K22.2 Esophageal obstruction; K20.9 Esophagitis, unspecified; E78.5 Hyperlipidemia, unspecified; K85.90 Acute pancreatitis without necrosis or infection, unspecified; Z80.0 Family history of malignant neoplasm of digestive organs; Z80.3 Family history of malignant neoplasm of breast; Z96.643 Presence of artificial hip joint, bilateral; Z87.891 Personal history of nicotine dependence
CPT/HCPCS: 36415; 71010; 71275; 80053; 83690; 83880; 84484; 85027; 85379; 85610; 93005; 94640; 99285; G0378; G0480; G0481; J7613; J7626; Q9967; G0379